=== PATIENT | female | born 1955 | race Caucasian/White ===

== ENCOUNTER 2018-04-28 11:35 | Day surgery (SDC) | payer OTHER ==
[~2018-04-28] VITALS: Ht 172.7 cm; Wt 80.8 kg
[~2018-04-28 11:35] MED LIST: ALLEGRA ALLERG180 M1 PO; CETI5 PO; FISH OIL 1,0001 EAC1 PO; FLUO10 PO; HORMONE REPLACEMENT TOP; MULTI VITAMIN1 EACH PO; NORT25 PO; Prinivil10 MG PO; Prozac40 MG PO; VITAMIN D400 UNI1 PO
== END 2018-04-28 13:36 | disposition home or self-care (01) ==
LOC: ORSCSDS 11:35
PROVIDERS: Ophthalmology
PROC: 08RK3JZ Replacement of Left Lens with Synthetic Substitute, Percutaneous Approach (ICD-10-PCS; principal; 2018-04-28 13:00)
DX: H25.12 Age-related nuclear cataract, left eye (principal); I10 Essential (primary) hypertension; Z79.899 Other long term (current) drug therapy
CPT/HCPCS: J2250; J3010; V2632

== ENCOUNTER 2019-12-07 09:19 | Day surgery (SDC) | payer OTHER ==
[~2019-12-07] VITALS: Ht 172.7 cm; Wt 88.5 kg
== END 2019-12-07 11:28 | disposition home or self-care (01) ==
LOC: ORSCSDS 09:19
PROVIDERS: Surgery
PROC: 0DJD8ZZ Inspection of Lower Intestinal Tract, Via Natural or Artificial Opening Endoscopic (ICD-10-PCS; principal; 2019-12-07 11:00)
DX: Z12.11 Encounter for screening for malignant neoplasm of colon (principal); K57.30 Diverticulosis of large intestine without perforation or abscess without bleeding; F32.9 Major depressive disorder, single episode, unspecified; G47.33 Obstructive sleep apnea (adult) (pediatric); I10 Essential (primary) hypertension; E66.9 Obesity, unspecified; Z68.30 Body mass index [BMI] 30.0-30.9, adult; Z79.82 Long term (current) use of aspirin; Z87.891 Personal history of nicotine dependence; Z79.899 Other long term (current) drug therapy
CPT/HCPCS: 82947; J2250; J2704; J7120

== ENCOUNTER 2019-12-30 12:00 | Emergency (ER) | payer OTHER ==
[~2019-12-30] VITALS: Ht 172.7 cm; Wt 88.5 kg
[2019-12-30] MEDS ORDERED: IBUP600 PO (13:16)
[2019-12-30] MEDS ORDERED: Norco 5-325 Ta1 EACH PO (13:16)
[2019-12-30] MEDS ORDERED: CYCL10 PO (13:16)
== END 2019-12-30 13:28 | disposition home or self-care (01) ==
LOC: ER 12:00
DX: M54.2 Cervicalgia (principal); M54.5 Low back pain; Z88.2 Allergy status to sulfonamides; Z88.5 Allergy status to narcotic agent; Z79.899 Other long term (current) drug therapy; Y92.410 Unspecified street and highway as the place of occurrence of the external cause; V49.9XXA Car occupant (driver) (passenger) injured in unspecified traffic accident, initial encounter
CPT/HCPCS: 72040; 99283-25; L0160

== ENCOUNTER 2020-01-16 07:24 | Day surgery (SDC) | payer OTHER ==
[~2020-01-16] VITALS: Ht 172.7 cm; Wt 201.8 kg
[~2020-01-16 07:24] MED LIST changes: +ASPI325 PO; +CYCL10 PO; +IBUP600 PO; +Norco 5-325 Ta1 EACH PO
== END 2020-01-16 09:38 | disposition home or self-care (01) ==
LOC: ORSCSDS 07:24
PROVIDERS: Ophthalmology
PROC: 08RJ3JZ Replacement of Right Lens with Synthetic Substitute, Percutaneous Approach (ICD-10-PCS; principal; 2020-01-16 08:45)
DX: H25.11 Age-related nuclear cataract, right eye (principal); I10 Essential (primary) hypertension; G47.33 Obstructive sleep apnea (adult) (pediatric); K21.9 Gastro-esophageal reflux disease without esophagitis; Z79.899 Other long term (current) drug therapy; Z79.82 Long term (current) use of aspirin
CPT/HCPCS: J2001; J2250; J3010; J3301; J7040; V2632

== ENCOUNTER → 2023-08-10 | Outpatient (CLI) | payer OTHER ==
[2023-08-14 09:15] LABS: HPV HIGH RISK BY TMA Not Detected; HPV SOURCE Cervical
== END ==
LOC: LAB SHORT 11:17 → LAB EV 11:17
PROVIDERS: Family Medicine
DX: Z01.419 Encounter for gynecological examination (general) (routine) without abnormal findings (principal)
CPT/HCPCS: 87624; G0123

== ENCOUNTER → 2023-11-05 | Outpatient (CLI) | payer OTHER ==
[2023-11-05 18:50] LABS: BASOPHILS ABSOLUTE AUTO 0.04 K/mm3 (0.00-0.23); BASOPHILS PERCENT AUTO 1 % (0-2); EOSINOPHILS ABSOLUTE AUTO 0.08 K/mm3 (0.00-0.68); EOSINOPHILS PERCENT AUTO 2 % (0-6); Hematocrit 40.7 % (33.0-51.0); Hemoglobin 13.6 g/dL (11.5-16.0); IMMATURE GRAN ABSOLUTE AUTO 0.01 K/mm3 (0.00-0.10); IMMATURE GRAN PERCENT AUTO 0 % (0-1); LYMPHOCYTES ABSOLUTE AUTO 1.31 K/mm3 (0.84-5.20); LYMPHOCYTES PERCENT AUTO 26 % (21-46); MONOCYTES ABSOLUTE AUTO 0.37 K/mm3 (0.16-1.47); MONOCYTES PERCENT AUTO 7 % (4-13); Mean Corpuscular HGB 32.8 pg (26.0-34.0); Mean Corpuscular HGB Conc 33.4 g/dL (31.5-36.5); Mean Corpuscular Volume 98 fL (80-100); NEUTROPHILS PERCENT AUTO 64 % (41-73); Platelet Count 230 K/mm3 (150-400); RDW Coefficient Variation 11.8 % (11.7-14.2); RDW Standard Deviation 43.2 fL (35.1-46.3); Red Blood Cell Count 4.15 M/mm3 (3.80-5.20); White Blood Cell Count 5.01 K/mm3 (4.00-11.30)
[2023-11-05 19:08] LABS: Alanine Aminotransfer (ALT/SGP 16 U/L (12-78); Albumin, Blood 3.7 g/dL (3.4-5.0); Albumin/Globulin Ratio 1.1 (0.8-1.8); Alk Phos 57 U/L (50-136); Anion Gap 7 mmol/L (3-11); Aspartate Aminotrans (AST/SGOT 14 U/L (12-37); Blood Urea Nitrogen 10 mg/dL (8-24); CHOL/HDL RATIO 3.5; CO2, Blood 28 mmol/L (21-32); Calcium, Blood 9.5 mg/dL (8.5-10.1); Chloride, Blood 102 mmol/L (98-108); Cholesterol 225 mg/dL (50-200); Globulin, Blood 3.3 g/dL (2.2-4.0); Glucose, Blood 108 mg/dL (70-99); HDL Cholesterol 64 mg/dL (>39); LDL/HDL RATIO 2.2; Low Density Lipoprotein Chol 141 mg/dL (0-110); Sodium, Blood 133 mmol/L (136-145); Triglycerides 98 mg/dL (30-160); Very Low Density Lipoprot Chol 19 mg/dL (6-32)
[2023-11-05 19:11] LABS: Bun/Creatinine Ratio 15.1 (12.0-20.0); Creatinine, Blood 0.66 mg/dL (0.40-1.00); Glomerular Filtration Rate 97 (60-)
== END | disposition home or self-care (01) ==
LOC: LAB SHORT 17:56 → LAB 17:56
PROVIDERS: Family Medicine
DX: E78.2 Mixed hyperlipidemia (principal); I10 Essential (primary) hypertension
CPT/HCPCS: 80053; 80061; 85025